=== PATIENT | female | born 1965 | race African-American/Black ===

== ENCOUNTER 2019-05-11 03:26 | Inpatient (IN) ==
[2019-05-11] MEDS ORDERED: ROCURONIUM 100 MG/10 ML VIAL IV ONE (03:44)
[2019-05-11] MEDS ORDERED: ETOMIDATE 20 MG/10 ML VIAL IV STA (03:44)
[2019-05-11] MEDS ORDERED: NOREPINEPHRINE 4 MG/4 ML VIAL IV ONE ×2 (03:51→08:41)
[2019-05-11] MEDS: NOREPINEPHRINE 8 MG in SODIUM CHLORIDE 0.9% 242 ML IV PRN ×3 (03:55→13:30)
[2019-05-11 04:15] LABS: ABG Base Excess -2.6 MMOL/L (-2.5-2.5); ABG HCO3 22.3 MMOL/L (20-26); ABG Oxygen Saturation 99.7 % (95-100); ABG PCO2 52.1 MM HG (35-48); ABG PH 7.291 (7.35-7.45); ABG TCO2 21.4 MMOL/L (23-27); Allen Test Positive; Pt O2 Delivery Device Ventilator
[2019-05-11] MEDS ORDERED: fentaNYL 100 MCG/2 ML VIAL IV STA (05:32)
[2019-05-11 05:48] LABS: Basophils # 0.1 10*3/uL (0.0-0.2); Basophils % 0.7 % (0.0-0.8); Eosinophils % 0.2 % (0.00-10.9); Hematocrit 59.1 VOL% (35.7-47.0); Immature Granulocytes % 2.2 %; Immature Granulocytes Absolute 0.27 #; Lymphocytes # 2.2 10*3/uL (1.4-4.0); Lymphocytes % 17.8 % (21.3-54.2); Mean Corpuscular HGB Conc 28.8 GM/DL (32-36); Mean Corpuscular Volume 103.7 FL (87-102); Mean Platelet Volume 9.3 FL (9.6-12.0); Monocytes % 10.6 % (1.7-12.7); Neutrophils % 68.5 % (38.7-73.9); Platelet Count 209 T/CUMM (130-400); Red Cell Distribution Width 14.6 % (9.3-17.3); White Blood Count 12.1 T/CUMM (4-12)
[2019-05-11 05:57] LABS: Albumin 3.5 G/DL (3.4-5.0); Bilirubin,Total 0.6 MG/DL (0.2-1.0); Calcium 9.3 MG/DL (8.5-10.1); Osmolality,Calculated 280.5 MOS/KG (273-304)
[2019-05-11 06:13] LABS: Platelet Estimate Adequate
[2019-05-11] MEDS ORDERED: SODIUM CHLORIDE 0.9% 2,000 ML IV STA (06:28)
[2019-05-11 06:32] LABS: Apearance,Urine Slightly Hazy (Clear); Bacteria,Urine Few /HPF (Few); Bilirubin,Urine Negative (Negative); Blood, Urine Negative (Negative); Glucose,Urine (UA) Negative (Negative); Hyaline Casts,Urine 7 /LPF (0-3); Ketones,Urine Negative (Negative); Mucus,Urine Occasional /LPF (Occasional); Nitrite,Urine Negative (Negative); Protein,Urine Negative; RBC,Urine 1 /HPF (0-4); Squamous Epithelial Cell,Urine Occasional /HPF (0-10); Urine Color Yellow (Yellow); Urine Specific Gravity 1.009 (1.001-1.035); Urine Urobilinogen < 2.0 EU/DL (0.2-1.0); WBC,Urine 2 /HPF (0-6)
[2019-05-11] MEDS ORDERED: MIDAZOLAM 100 MG in SODIUM CHLORIDE 0.9% 80 ML IV PRN (06:46)
[2019-05-11] MEDS ORDERED: ONDANSETRON 4 MG/2 ML VIAL IV PRN (06:57)
[2019-05-11] MEDS ORDERED: MORPHINE 4 MG/1 ML VIAL IV PRN (06:57)
[2019-05-11 08:36] LABS: Hepatitis B Core IgM Quant 0.08 Index; Hepatitis B Surface Ag Quant 0.36 Index; Hepatitis B Surface Ag Result Negative (Negative); Hepatitis C Virus Ab Quant < 0.02 Index; Hepatitis C Virus Ab Result Negative (Negative)
[2019-05-11] MEDS: LEVOFLOXACIN INJ 750 MG in PREMIX 1 EACH IV SCH (08:38)
[2019-05-11] MEDS: ENOXAPARIN 40 MG/0.4 ML SYRINGE SUBCUT SCH (08:40)
[2019-05-11 08:42] LABS: Barbiturates Screen,Urine Negative (Negative); Benzodiazepines Screen,Urine Positive (Negative); Cannabinoid Screen,Urine Negative (Negative); Opiate Screen,Urine Negative (Negative); Phencyclidine Screen,Urine Negative (Negative)
[2019-05-11] MEDS: FAMOTIDINE 20 MG/2 ML VIAL IV SCH ×2 (08:45→19:50)
[2019-05-11] MEDS: PIPERACILLIN/TAZOBACTAM 3,375 MG in SODIUM CHLORIDE 0.9% 100 ML IV SCH ×3 (08:45→22:12)
[2019-05-11] MEDS ORDERED: SODIUM CHLORIDE 0.9% 750 ML IV STA (11:01)
[2019-05-11 11:28] LABS: ABG Base Excess -2.2 MMOL/L (-2.5-2.5); ABG HCO3 22.6 MMOL/L (20-26); ABG Oxygen Saturation 98.7 % (95-100); ABG PCO2 40.4 MM HG (35-48); ABG PH 7.364 (7.35-7.45); ABG TCO2 19.6 MMOL/L (23-27)
[2019-05-11] MEDS ORDERED: ALBUTEROL/IPRATROPIUM 3 ML NEB RESP TX PRN (11:41)
[2019-05-11] MEDS ORDERED: PROPOFOL 1,000 MG/100 ML BOTTLE IV ONE (13:18)
[2019-05-11] MEDS: PROPOFOL 1,000 MG/100 ML BOTTLE IV SCH (13:20)
[2019-05-11] MEDS: DIAZEPAM 5 MG TABLET PER TUBE SCH ×3 (14:41→21:19)
[2019-05-11] MEDS: methylPREDNISolone SOD SUC 125 MG/2 ML VIAL IV SCH (14:46)
[2019-05-11] MEDS: SUCRALFATE 1 GM TABLET PO SCH (21:19)
[2019-05-12] MEDS: methylPREDNISolone SOD SUC 125 MG/2 ML VIAL IV SCH (01:49)
[2019-05-12 04:13] LABS: ABG Base Excess -3.3 MMOL/L (-2.5-2.5); ABG Oxygen Saturation 98.3 % (95-100); ABG PCO2 35.7 MM HG (35-48); ABG PH 7.387 (7.35-7.45); ABG PO2 135.9 MM HG (80-95); ABG TCO2 22.1 MMOL/L (23-27); Allen Test Positive; Pt O2 Delivery Device Ventilator
[2019-05-12] MEDS: THIAMINE 100 MG TABLET PO SCH (06:20)
[2019-05-12] MEDS: FOLIC ACID 1 MG TABLET PO SCH (06:20)
[2019-05-12] MEDS: ENOXAPARIN 40 MG/0.4 ML SYRINGE SUBCUT SCH (06:20)
[2019-05-12] MEDS: SUCRALFATE 1 GM TABLET PO SCH ×2 (06:20→21:12)
[2019-05-12] MEDS: PIPERACILLIN/TAZOBACTAM 3,375 MG in SODIUM CHLORIDE 0.9% 100 ML IV SCH ×3 (06:23→22:10)
[2019-05-12] MEDS: LEVOFLOXACIN INJ 750 MG in PREMIX 1 EACH IV SCH (06:23)
[2019-05-12 06:41] LABS: Calcium 9.3 MG/DL (8.5-10.1); Osmolality,Calculated 289.7 MOS/KG (273-304); Troponin I 0.029 NG/ML (0.00-0.045)
[2019-05-12 06:44] LABS: Basophils # 0.1 10*3/uL (0.0-0.2); Basophils % 0.5 % (0.0-0.8); Eosinophils % 0.1 % (0.00-10.9); Hematocrit 51.8 VOL% (35.7-47.0); Hemoglobin 15.5 GM/DL (12.0-16.0); Immature Granulocytes % 2.6 %; Immature Granulocytes Absolute 0.29 #; Lymphocytes # 1.1 10*3/uL (1.4-4.0); Mean Corpuscular HGB Conc 29.9 GM/DL (32-36); Mean Corpuscular Volume 100.4 FL (87-102); Mean Platelet Volume 9.5 FL (9.6-12.0); Monocytes % 3.5 % (1.7-12.7); Neutrophils % 83.3 % (38.7-73.9); Platelet Count 184 T/CUMM (130-400); Red Blood Count 5.16 MC/CUMM (3.8-5.5); Red Cell Distribution Width 14.5 % (9.3-17.3)
[2019-05-12 06:46] LABS: Platelet Estimate Adequate
[2019-05-12] MEDS ORDERED: CLOPIDOGREL 75 MG TABLET PO SCH (07:00)
[2019-05-12] MEDS ORDERED: MAGNESIUM SULF RIDER 4 GM in PREMIX 1 EACH IV ONE (07:57)
[2019-05-12] MEDS ORDERED: DEXTROSE 50% 25 GM/50 ML VIAL IV PRN (08:02)
[2019-05-12] MEDS ORDERED: GLUCAGON 1 MG VIAL IM PRN (08:02)
[2019-05-12] MEDS ORDERED: methylPREDNISolone SOD SUC 125 MG/2 ML VIAL IV SCH (08:03)
[2019-05-12] MEDS: FAMOTIDINE 20 MG/2 ML VIAL IV SCH ×2 (08:55→19:50)
[2019-05-12] MEDS: DIAZEPAM 5 MG TABLET PER TUBE SCH ×4 (08:56→21:12)
[2019-05-12] MEDS: POTASSIUM CHLORIDE 20 MEQ/15 ML UDCUP PER TUBE SCH ×2 (08:56→14:47)
[2019-05-12] MEDS: LACTATED RINGERS 1,000 ML IV SCH (08:57)
[2019-05-12 09:29] LABS: ABG Base Excess -1.4 MMOL/L (-2.5-2.5); ABG HCO3 23.2 MMOL/L (20-26); ABG Oxygen Saturation 97.8 % (95-100); ABG PCO2 43.7 MM HG (35-48); ABG PH 7.354 (7.35-7.45); ABG TCO2 20.8 MMOL/L (23-27); Pt O2 Delivery Device Ventilator
[2019-05-12] MEDS: PROPOFOL 1,000 MG/100 ML BOTTLE IV SCH (16:53)
[2019-05-12] MEDS ORDERED: IBUPROFEN 600 MG TABLET PO ONE (19:03)
[2019-05-12] MEDS ORDERED: methylPREDNISolone SOD SUC 40 MG/1 ML VIAL IV SCH (20:00)
[2019-05-13 04:56] LABS: ABG Base Excess -1.2 MMOL/L (-2.5-2.5); ABG HCO3 23.4 MMOL/L (20-26); ABG Oxygen Saturation 98.6 % (95-100); ABG PCO2 66.5 MM HG (35-48); ABG TCO2 25.2 MMOL/L (23-27); Allen Test Positive
[2019-05-13] MEDS: ENOXAPARIN 40 MG/0.4 ML SYRINGE SUBCUT SCH (06:03)
[2019-05-13] MEDS: SUCRALFATE 1 GM TABLET PO SCH ×2 (06:03→21:03)
[2019-05-13] MEDS: THIAMINE 100 MG TABLET PO SCH (06:03)
[2019-05-13] MEDS: FOLIC ACID 1 MG TABLET PO SCH (06:03)
[2019-05-13] MEDS: CLOPIDOGREL 75 MG TABLET PER TUBE SCH (06:04)
[2019-05-13] MEDS: LEVOFLOXACIN INJ 750 MG in PREMIX 1 EACH IV SCH (06:09)
[2019-05-13] MEDS: PIPERACILLIN/TAZOBACTAM 3,375 MG in SODIUM CHLORIDE 0.9% 100 ML IV SCH ×3 (06:09→23:39)
[2019-05-13 06:22] LABS: Basophils # 0.1 10*3/uL (0.0-0.2); Basophils % 0.4 % (0.0-0.8); Hemoglobin 14.2 GM/DL (12.0-16.0); Immature Granulocytes % 1.2 %; Immature Granulocytes Absolute 0.16 #; Lymphocytes # 1.7 10*3/uL (1.4-4.0); Lymphocytes % 12.7 % (21.3-54.2); Mean Corpuscular HGB Conc 29.6 GM/DL (32-36); Mean Corpuscular Volume 101.7 FL (87-102); Mean Platelet Volume 9.1 FL (9.6-12.0); Monocytes % 6.6 % (1.7-12.7); Neutrophils % 79.1 % (38.7-73.9); Platelet Count 177 T/CUMM (130-400); Red Blood Count 4.72 MC/CUMM (3.8-5.5); Red Cell Distribution Width 14.4 % (9.3-17.3); White Blood Count 13.7 T/CUMM (4-12)
[2019-05-13 06:23] LABS: Calcium 8.5 MG/DL (8.5-10.1)
[2019-05-13 06:32] LABS: Band Neutrophils 2 % (0-10); Lymphocytes 12 % (20-55); Platelet Estimate Normal; Segmented Neutrophils 79 % (50-85); Total Cells Counted 100
[2019-05-13] MEDS: LACTATED RINGERS 1,000 ML IV SCH (07:27)
[2019-05-13] MEDS: LEVOFLOXACIN 500 MG TABLET PO SCH (08:25)
[2019-05-13] MEDS ORDERED: predniSONE 20 MG TABLET PO SCH (09:00)
[2019-05-13] MEDS: FAMOTIDINE 20 MG/2 ML VIAL IV SCH (10:39)
[2019-05-13 12:30] LABS: ABG Base Excess -3.5 MMOL/L (-2.5-2.5); ABG HCO3 21.5 MMOL/L (20-26); ABG Oxygen Saturation 94.9 % (95-100); ABG PO2 88.1 MM HG (80-95); ABG TCO2 25.1 MMOL/L (23-27)
[2019-05-13 12:31] LABS: ABG PCO2 76.3 MM HG (35-48); ABG PH 7.177 (7.35-7.45)
[2019-05-13] MEDS ORDERED: IBUPROFEN 200 MG TABLET PO PRN (13:23)
[2019-05-13 15:47] LABS: ABG Base Excess 0.3 MMOL/L (-2.5-2.5); ABG HCO3 24.6 MMOL/L (20-26); ABG Oxygen Saturation 94.9 % (95-100); ABG PCO2 51.1 MM HG (35-48); ABG PH 7.335 (7.35-7.45); ABG PO2 72.3 MM HG (80-95); ABG TCO2 23.7 MMOL/L (23-27); Allen Test Positive; Pt O2 Delivery Device BIPAP
[2019-05-13] MEDS: CARVEDILOL 25 MG TABLET PO SCH (16:13)
[2019-05-13] MEDS: methylPREDNISolone SOD SUC 40 MG/1 ML VIAL IV SCH ×2 (16:13→23:37)
[2019-05-13] MEDS: FAMOTIDINE 20 MG TABLET PO SCH (21:03)
[2019-05-14] MEDS: IBUPROFEN 400 MG TABLET PO PRN ×2 (03:07→18:35)
[2019-05-14 05:44] LABS: Basophils % 0.3 % (0.0-0.8); Immature Granulocytes % 1.3 %; Immature Granulocytes Absolute 0.13 #; Mean Corpuscular HGB Conc 29.7 GM/DL (32-36); Mean Corpuscular Volume 101.3 FL (87-102); Mean Platelet Volume 9.4 FL (9.6-12.0); Monocytes % 4.8 % (1.7-12.7); Neutrophils % 83.6 % (38.7-73.9); Platelet Count 177 T/CUMM (130-400); Red Blood Count 4.59 MC/CUMM (3.8-5.5); Red Cell Distribution Width 14.2 % (9.3-17.3); White Blood Count 10.1 T/CUMM (4-12)
[2019-05-14 06:13] LABS: Hematocrit 46.1 VOL% (35.7-47.0); Hemoglobin 13.8 GM/DL (12.0-16.0)
[2019-05-14 06:14] LABS: Hypochromasia 1+; Platelet Estimate Adequate
[2019-05-14 06:30] LABS: Calcium 9.4 MG/DL (8.5-10.1); Osmolality,Calculated 290.6 MOS/KG (273-304)
[2019-05-14] MEDS: SUCRALFATE 1 GM TABLET PO SCH ×2 (07:08→20:12)
[2019-05-14] MEDS: FOLIC ACID 1 MG TABLET PO SCH (07:08)
[2019-05-14] MEDS: CLOPIDOGREL 75 MG TABLET PER TUBE SCH (07:09)
[2019-05-14] MEDS: ENOXAPARIN 40 MG/0.4 ML SYRINGE SUBCUT SCH (07:09)
[2019-05-14] MEDS: PIPERACILLIN/TAZOBACTAM 3,375 MG in SODIUM CHLORIDE 0.9% 100 ML IV SCH (07:10)
[2019-05-14] MEDS: THIAMINE 100 MG TABLET PO SCH (07:14)
[2019-05-14] MEDS: LEVOFLOXACIN 500 MG TABLET PO SCH (08:42)
[2019-05-14] MEDS: MULTIVITAMIN (CENTRUM) TABLET PO SCH (08:42)
[2019-05-14] MEDS: CARVEDILOL 25 MG TABLET PO SCH ×2 (08:43→17:16)
[2019-05-14] MEDS: methylPREDNISolone SOD SUC 40 MG/1 ML VIAL IV SCH ×3 (08:44→23:52)
[2019-05-14] MEDS: CYANOCOBALAMIN 500 MCG TABLET PO SCH (08:49)
[2019-05-14] MEDS: ALBUTEROL/IPRATROPIUM 3 ML NEB RESP TX SCH ×2 (13:20→19:25)
[2019-05-14] MEDS: DIAZEPAM 5 MG TABLET PER TUBE PRN (20:12)
[2019-05-14] MEDS: FAMOTIDINE 20 MG TABLET PO SCH (20:12)
[2019-05-14] MEDS: QUEtiapine 25 MG TABLET PO PRN (23:50)
[2019-05-15] MEDS: ALBUTEROL/IPRATROPIUM 3 ML NEB RESP TX SCH ×4 (01:01→19:05)
[2019-05-15] MEDS: ENOXAPARIN 40 MG/0.4 ML SYRINGE SUBCUT SCH (06:41)
[2019-05-15] MEDS: SUCRALFATE 1 GM TABLET PO SCH (06:42)
[2019-05-15] MEDS: FOLIC ACID 1 MG TABLET PO SCH (06:42)
[2019-05-15] MEDS: CLOPIDOGREL 75 MG TABLET PER TUBE SCH (06:42)
[2019-05-15] MEDS: THIAMINE 100 MG TABLET PO SCH (06:42)
[2019-05-15 07:51] LABS: Basophils % 0.2 % (0.0-0.8); Eosinophils % 0.1 % (0.00-10.9); Hematocrit 47.4 VOL% (35.7-47.0); Immature Granulocytes % 7.3 %; Immature Granulocytes Absolute 0.78 #; Lymphocytes # 1.2 10*3/uL (1.4-4.0); Lymphocytes % 11.6 % (21.3-54.2); Mean Corpuscular HGB Conc 29.5 GM/DL (32-36); Mean Corpuscular Volume 103.5 FL (87-102); Mean Platelet Volume 9.5 FL (9.6-12.0); Monocytes % 5.8 % (1.7-12.7); NRBC # 0.04 10*3/uL; Platelet Count 180 T/CUMM (130-400); Red Blood Count 4.58 MC/CUMM (3.8-5.5); Red Cell Distribution Width 14.4 % (9.3-17.3); White Blood Count 10.7 T/CUMM (4-12)
[2019-05-15 07:55] LABS: Osmolality,Calculated 289.6 MOS/KG (273-304)
[2019-05-15 08:07] LABS: Band Neutrophils 3 % (0-10); Lymphocytes 13 % (20-55); Platelet Estimate Adequate; Segmented Neutrophils 81 % (50-85); Total Cells Counted 100
[2019-05-15 08:08] LABS: Hypochromasia 1+
[2019-05-15] MEDS: CYANOCOBALAMIN 500 MCG TABLET PO SCH (08:52)
[2019-05-15] MEDS: LEVOFLOXACIN 500 MG TABLET PO SCH (08:52)
[2019-05-15] MEDS: methylPREDNISolone SOD SUC 40 MG/1 ML VIAL IV SCH ×3 (08:52→23:57)
[2019-05-15] MEDS: MULTIVITAMIN (CENTRUM) TABLET PO SCH (08:53)
[2019-05-15] MEDS: CARVEDILOL 25 MG TABLET PO SCH ×2 (08:53→17:56)
[2019-05-15] MEDS: ALBUTEROL 0.63 MG/3 ML NEB RESP TX SCH ×2 (08:57→11:05)
[2019-05-15 09:00] LABS: ABG Base Excess -2.7 MMOL/L (-2.5-2.5); ABG HCO3 21.8 MMOL/L (20-26); ABG Oxygen Saturation 82.6 % (95-100); ABG PO2 53.6 MM HG (80-95)
[2019-05-15 09:04] LABS: ABG PCO2 91.8 MM HG (35-48); ABG PH 7.136 (7.35-7.45)
[2019-05-15] MEDS: DIAZEPAM 5 MG TABLET PER TUBE PRN (10:55)
[2019-05-15] MEDS ORDERED: ALBUTEROL 0.63 MG/3 ML NEB RESP TX PRN (11:14)
[2019-05-15] MEDS ORDERED: ETOMIDATE 20 MG/10 ML VIAL IV ONE ×2 (11:54→12:12)
[2019-05-15] MEDS ORDERED: VECURONIUM 10 MG VIAL IV ONE (11:55)
[2019-05-15] MEDS ORDERED: SUCCINYLCHOLINE 200 MG/10 ML VIAL ONE (11:55)
[2019-05-15] MEDS ORDERED: LACTATED RINGERS 500 ML IV ONE (12:00)
[2019-05-15] MEDS ORDERED: ROCURONIUM 100 MG/10 ML VIAL IV ONE ×2 (12:04→12:10)
[2019-05-15] MEDS ORDERED: PROPOFOL 1,000 MG/100 ML BOTTLE IV ONE (12:13)
[2019-05-15] MEDS: PROPOFOL 1,000 MG/100 ML BOTTLE IV SCH ×2 (12:15→20:48)
[2019-05-15 13:44] LABS: ABG Base Excess 1.2 MMOL/L (-2.5-2.5); ABG HCO3 25.5 MMOL/L (20-26); ABG Oxygen Saturation 98.7 % (95-100); ABG PCO2 52.7 MM HG (35-48); ABG PH 7.339 (7.35-7.45); ABG TCO2 24.4 MMOL/L (23-27); Pt O2 Delivery Device Ventilator
[2019-05-15] MEDS: FAMOTIDINE 20 MG/2 ML VIAL IV SCH ×2 (14:42→23:56)
[2019-05-15] MEDS: NIFEdipine 10 MG CAPSULE PO PRN ×2 (14:43→20:07)
[2019-05-15 21:30] LABS: Apearance,Urine Slightly Hazy (Clear); Bacteria,Urine Occasional /HPF (Few); Bilirubin,Urine Negative (Negative); Blood, Urine Negative (Negative); Glucose,Urine (UA) Negative (Negative); Granular Casts,Urine 1 /LPF (0-1); Hyaline Casts,Urine 33 /LPF (0-3); Ketones,Urine Negative (Negative); Mucus,Urine Occasional /LPF (Occasional); Nitrite,Urine Negative (Negative); Protein,Urine 30 MG/DL; RBC,Urine 2 /HPF (0-4); Squamous Epithelial Cell,Urine Occasional /HPF (0-10); Urine Color Yellow (Yellow); Urine Specific Gravity 1.014 (1.001-1.035); Urine Urobilinogen < 2.0 EU/DL (0.2-1.0); WBC,Urine 5 /HPF (0-6)
[2019-05-15] MEDS: MIDAZOLAM 100 MG in SODIUM CHLORIDE 0.9% 80 ML IV PRN (21:33)
[2019-05-15] MEDS: IBUPROFEN 400 MG TABLET PO PRN (22:47)
[2019-05-15] MEDS: QUEtiapine 25 MG TABLET PO PRN (22:52)
[2019-05-16] MEDS: ALBUTEROL/IPRATROPIUM 3 ML NEB RESP TX SCH ×4 (01:38→19:27)
[2019-05-16] MEDS: DIAZEPAM 5 MG TABLET PER TUBE PRN (03:44)
[2019-05-16] MEDS: NIFEdipine 10 MG CAPSULE PO PRN ×2 (03:45→09:53)
[2019-05-16 04:12] LABS: ABG Base Excess 5.8 MMOL/L (-2.5-2.5); ABG HCO3 29.6 MMOL/L (20-26); ABG Oxygen Saturation 96.3 % (95-100); ABG PCO2 53.4 MM HG (35-48); ABG PH 7.392 (7.35-7.45); ABG PO2 81.2 MM HG (80-95); ABG TCO2 27.9 MMOL/L (23-27); Allen Test Positive; Pt O2 Delivery Device Ventilator
[2019-05-16] MEDS ORDERED: LORazepam 2 MG/1 ML VIAL IV PRN (04:26)
[2019-05-16] MEDS: fentaNYL INJ 1,250 MCG in SODIUM CHLORIDE 0.9% 225 ML IV PRN ×3 (05:08→21:24)
[2019-05-16] MEDS ORDERED: DEXMEDETOMIDINE 200 MCG in SODIUM CHLORIDE 0.9% 48 ML IV PRN (06:23)
[2019-05-16 06:47] LABS: Basophils # 0.1 10*3/uL (0.0-0.2); Basophils % 0.9 % (0.0-0.8); Hematocrit 44.4 VOL% (35.7-47.0); Hemoglobin 13.5 GM/DL (12.0-16.0); Immature Granulocytes % 4.4 %; Immature Granulocytes Absolute 0.57 #; Lymphocytes % 15.2 % (21.3-54.2); Mean Corpuscular HGB Conc 30.4 GM/DL (32-36); Mean Corpuscular Volume 98.4 FL (87-102); Mean Platelet Volume 9.4 FL (9.6-12.0); Monocytes % 5.3 % (1.7-12.7); NRBC # 0.06 10*3/uL; Neutrophils % 74.2 % (38.7-73.9); Platelet Count 184 T/CUMM (130-400); Red Blood Count 4.51 MC/CUMM (3.8-5.5); White Blood Count 12.9 T/CUMM (4-12)
[2019-05-16 07:12] LABS: Albumin 2.8 G/DL (3.4-5.0); Bilirubin,Total 0.5 MG/DL (0.2-1.0); Calcium 9.8 MG/DL (8.5-10.1); Osmolality,Calculated 287.8 MOS/KG (273-304); Total Protein 6.2 G/DL (6.4-8.3)
[2019-05-16 07:40] LABS: Hypochromasia Slight; Lymphocytes 18 % (20-55); Metamyelocytes 1 %; Segmented Neutrophils 75 % (50-85); Target Cells Slight; Total Cells Counted 100
[2019-05-16 07:41] LABS: Macrocytosis Slight; Platelet Estimate Adequate
[2019-05-16] MEDS: CARVEDILOL 25 MG TABLET PO SCH (07:55)
[2019-05-16] MEDS: MULTIVITAMIN (CENTRUM) TABLET PO SCH (08:42)
[2019-05-16] MEDS: FOLIC ACID 1 MG TABLET PO SCH (08:42)
[2019-05-16] MEDS: CLOPIDOGREL 75 MG TABLET PO SCH (08:42)
[2019-05-16] MEDS: CYANOCOBALAMIN 500 MCG TABLET PO SCH (08:43)
[2019-05-16] MEDS: THIAMINE 100 MG TABLET PO SCH (08:43)
[2019-05-16] MEDS: ENOXAPARIN 40 MG/0.4 ML SYRINGE SUBCUT SCH (08:43)
[2019-05-16] MEDS: LEVOFLOXACIN INJ 500 MG in PREMIX 1 EACH IV SCH (08:44)
[2019-05-16] MEDS: methylPREDNISolone SOD SUC 40 MG/1 ML VIAL IV SCH ×3 (08:44→23:58)
[2019-05-16] MEDS ORDERED: GLUCAGON 1 MG VIAL IM PRN (08:58)
[2019-05-16] MEDS ORDERED: DEXTROSE 50% 25 GM/50 ML VIAL IV PRN (08:58)
[2019-05-16] MEDS: LISINOPRIL 10 MG TABLET PER TUBE SCH ×2 (12:33→20:11)
[2019-05-16] MEDS: FUROSEMIDE 40 MG TABLET PER TUBE SCH (12:33)
[2019-05-16] MEDS: FAMOTIDINE 20 MG/2 ML VIAL IV SCH ×2 (12:34→23:56)
[2019-05-16] MEDS: MIDAZOLAM 100 MG in SODIUM CHLORIDE 0.9% 80 ML IV PRN (16:00)
[2019-05-16] MEDS ORDERED: fentaNYL INJ 2,500 MCG in SODIUM CHLORIDE 0.9% 450 ML IV PRN (18:22)
[2019-05-16] MEDS: IBUPROFEN 400 MG TABLET PO PRN (20:10)
[2019-05-16] MEDS: CARVEDILOL 25 MG TABLET PER TUBE SCH (20:11)
[2019-05-16] MEDS: QUEtiapine 25 MG TABLET PO PRN (20:11)
[2019-05-17] MEDS: ALBUTEROL/IPRATROPIUM 3 ML NEB RESP TX SCH ×4 (00:56→20:00)
[2019-05-17 03:56] LABS: ABG Base Excess 12.2 MMOL/L (-2.5-2.5); ABG Oxygen Saturation 96.1 % (95-100); ABG PCO2 49.1 MM HG (35-48); ABG PH 7.495 (7.35-7.45); ABG PO2 79.1 MM HG (80-95); Allen Test Positive; Pt O2 Delivery Device Ventilator
[2019-05-17 03:58] LABS: Basophils # 0.1 10*3/uL (0.0-0.2); Basophils % 0.5 % (0.0-0.8); Hematocrit 44.7 VOL% (35.7-47.0); Hemoglobin 14.1 GM/DL (12.0-16.0); Immature Granulocytes % 3.7 %; Immature Granulocytes Absolute 0.54 #; Lymphocytes # 1.8 10*3/uL (1.4-4.0); Lymphocytes % 12.2 % (21.3-54.2); Mean Corpuscular HGB Conc 31.5 GM/DL (32-36); Mean Corpuscular Volume 94.9 FL (87-102); Mean Platelet Volume 9.5 FL (9.6-12.0); Monocytes % 3.6 % (1.7-12.7); NRBC # 0.02 10*3/uL; Platelet Count 225 T/CUMM (130-400); Red Blood Count 4.71 MC/CUMM (3.8-5.5); Red Cell Distribution Width 13.7 % (9.3-17.3); White Blood Count 14.7 T/CUMM (4-12)
[2019-05-17 04:27] LABS: Albumin 2.7 G/DL (3.4-5.0); Bilirubin,Total 0.7 MG/DL (0.2-1.0); Calcium 9.3 MG/DL (8.5-10.1); Osmolality,Calculated 290.8 MOS/KG (273-304); Total Protein 6.1 G/DL (6.4-8.3)
[2019-05-17 04:47] LABS: Lymphocytes 9 % (20-55); Segmented Neutrophils 87 % (50-85); Total Cells Counted 100
[2019-05-17 04:48] LABS: Anisocytosis 1+; Platelet Estimate Adequate
[2019-05-17] MEDS: fentaNYL INJ 1,250 MCG in SODIUM CHLORIDE 0.9% 225 ML IV PRN ×4 (05:06→21:05)
[2019-05-17] MEDS: LEVOFLOXACIN INJ 500 MG in PREMIX 1 EACH IV SCH (05:59)
[2019-05-17] MEDS: FOLIC ACID 1 MG TABLET PO SCH (09:00)
[2019-05-17] MEDS: LISINOPRIL 10 MG TABLET PER TUBE SCH ×2 (09:00→20:21)
[2019-05-17] MEDS: MULTIVITAMIN (CENTRUM) TABLET PO SCH (09:00)
[2019-05-17] MEDS: CARVEDILOL 25 MG TABLET PER TUBE SCH ×2 (09:01→20:22)
[2019-05-17] MEDS: CLOPIDOGREL 75 MG TABLET PO SCH (09:01)
[2019-05-17] MEDS: THIAMINE 100 MG TABLET PO SCH (09:01)
[2019-05-17] MEDS: FUROSEMIDE 40 MG TABLET PER TUBE SCH (09:01)
[2019-05-17] MEDS: CYANOCOBALAMIN 500 MCG TABLET PO SCH (09:04)
[2019-05-17] MEDS: methylPREDNISolone SOD SUC 40 MG/1 ML VIAL IV SCH ×2 (09:14→16:05)
[2019-05-17] MEDS: ENOXAPARIN 40 MG/0.4 ML SYRINGE SUBCUT SCH (09:14)
[2019-05-17] MEDS: POTASSIUM CHLORIDE 20 MEQ/15 ML UDCUP PER TUBE SCH ×4 (09:42→20:22)
[2019-05-17] MEDS: MIDAZOLAM 100 MG in SODIUM CHLORIDE 0.9% 80 ML IV PRN (10:54)
[2019-05-17] MEDS: FAMOTIDINE 20 MG/2 ML VIAL IV SCH (12:14)
[2019-05-17] MEDS: IBUPROFEN 400 MG TABLET PO PRN (20:21)
[2019-05-17] MEDS: QUEtiapine 25 MG TABLET PO PRN (20:21)
[2019-05-18] MEDS: FAMOTIDINE 20 MG/2 ML VIAL IV SCH ×2 (00:31→12:58)
[2019-05-18] MEDS: methylPREDNISolone SOD SUC 40 MG/1 ML VIAL IV SCH ×3 (00:32→15:40)
[2019-05-18] MEDS: ALBUTEROL/IPRATROPIUM 3 ML NEB RESP TX SCH ×4 (00:41→19:27)
[2019-05-18 03:11] LABS: Allen Test Positive; Pt O2 Delivery Device Ventilator
[2019-05-18 03:14] LABS: ABG Base Excess 10.8 MMOL/L (-2.5-2.5); ABG HCO3 34.5 MMOL/L (20-26); ABG PCO2 67.8 MM HG (35-48); ABG PH 7.375 (7.35-7.45); ABG PO2 72.8 MM HG (80-95); ABG TCO2 34.2 MMOL/L (23-27)
[2019-05-18 05:05] LABS: Basophils # 0.1 10*3/uL (0.0-0.2); Basophils % 0.4 % (0.0-0.8); Hematocrit 45.8 VOL% (35.7-47.0); Hemoglobin 14.1 GM/DL (12.0-16.0); Immature Granulocytes % 2.5 %; Immature Granulocytes Absolute 0.45 #; Lymphocytes # 1.6 10*3/uL (1.4-4.0); Lymphocytes % 8.5 % (21.3-54.2); Mean Corpuscular HGB Conc 30.8 GM/DL (32-36); Mean Corpuscular Volume 98.5 FL (87-102); Mean Platelet Volume 9.5 FL (9.6-12.0); Monocytes % 2.9 % (1.7-12.7); Neutrophils % 85.7 % (38.7-73.9); Platelet Count 256 T/CUMM (130-400); Red Blood Count 4.65 MC/CUMM (3.8-5.5); Red Cell Distribution Width 13.8 % (9.3-17.3); White Blood Count 18.1 T/CUMM (4-12)
[2019-05-18 05:18] LABS: Alanine Aminotransferase 47 U/L (13-56); Albumin 2.8 G/DL (3.4-5.0); Alkaline Phosphatase 51 U/L (45-117); Aspartate Amino Transferase 16 U/L (0-37); Bilirubin,Total < 0.39 MG/DL (0.2-1.0); Blood Urea Nitrogen 25 MG/DL (7-18); Calcium 9.5 MG/DL (8.5-10.1); Glucose 143 MG/DL (74-106); Osmolality,Calculated 293.7 MOS/KG (273-304); Total Protein 6.2 G/DL (6.4-8.3)
[2019-05-18 05:33] LABS: Band Neutrophils 1 % (0-10); Hypochromasia 1+; Lymphocytes 8 % (20-55); Macrocytosis Slight; Platelet Estimate Adequate; Segmented Neutrophils 91 % (50-85); Total Cells Counted 100
[2019-05-18] MEDS: LEVOFLOXACIN INJ 500 MG in PREMIX 1 EACH IV SCH (06:04)
[2019-05-18] MEDS: MIDAZOLAM 100 MG in SODIUM CHLORIDE 0.9% 80 ML IV PRN (06:10)
[2019-05-18] MEDS: CYANOCOBALAMIN 500 MCG TABLET PO SCH (08:38)
[2019-05-18] MEDS: MULTIVITAMIN (CENTRUM) TABLET PO SCH (08:38)
[2019-05-18] MEDS: FOLIC ACID 1 MG TABLET PO SCH (08:38)
[2019-05-18] MEDS: THIAMINE 100 MG TABLET PO SCH (08:38)
[2019-05-18] MEDS: LISINOPRIL 10 MG TABLET PER TUBE SCH ×2 (08:38→21:46)
[2019-05-18] MEDS: CARVEDILOL 25 MG TABLET PER TUBE SCH ×2 (08:38→21:46)
[2019-05-18] MEDS: FUROSEMIDE 40 MG TABLET PER TUBE SCH (08:39)
[2019-05-18] MEDS: CLOPIDOGREL 75 MG TABLET PO SCH (08:39)
[2019-05-18 10:32] LABS: ABG Base Excess 13.8 MMOL/L (-2.5-2.5); ABG HCO3 37.6 MMOL/L (20-26); ABG Oxygen Saturation 94.4 % (95-100); ABG PCO2 63.1 MM HG (35-48); ABG PH 7.434 (7.35-7.45); ABG PO2 71.7 MM HG (80-95); ABG TCO2 35.3 MMOL/L (23-27); Allen Test Positive; Pt O2 Delivery Device Ventilator
[2019-05-18] MEDS: ENOXAPARIN 40 MG/0.4 ML SYRINGE SUBCUT SCH (10:43)
[2019-05-18] MEDS: hydrALAZINE 20 MG/1 ML VIAL IV PRN (12:59)
[2019-05-19] MEDS: methylPREDNISolone SOD SUC 40 MG/1 ML VIAL IV SCH ×3 (01:02→16:32)
[2019-05-19] MEDS: FAMOTIDINE 20 MG/2 ML VIAL IV SCH ×2 (01:02→14:04)
[2019-05-19] MEDS: ALBUTEROL/IPRATROPIUM 3 ML NEB RESP TX SCH ×4 (01:06→19:05)
[2019-05-19 04:22] LABS: Basophils # 0.1 10*3/uL (0.0-0.2); Basophils % 0.4 % (0.0-0.8); Hematocrit 46.6 VOL% (35.7-47.0); Hemoglobin 14.8 GM/DL (12.0-16.0); Immature Granulocytes % 2.6 %; Immature Granulocytes Absolute 0.55 #; Lymphocytes # 1.6 10*3/uL (1.4-4.0); Lymphocytes % 7.5 % (21.3-54.2); Mean Corpuscular HGB Conc 31.8 GM/DL (32-36); Mean Corpuscular Volume 95.1 FL (87-102); Mean Platelet Volume 9.2 FL (9.6-12.0); Monocytes % 5.2 % (1.7-12.7); Neutrophils % 84.3 % (38.7-73.9); Platelet Count 292 T/CUMM (130-400); Red Cell Distribution Width 13.9 % (9.3-17.3); White Blood Count 21.5 T/CUMM (4-12)
[2019-05-19 04:51] LABS: Bilirubin,Total 0.7 MG/DL (0.2-1.0); Osmolality,Calculated 279.8 MOS/KG (273-304); Total Protein 6.8 G/DL (6.4-8.3)
[2019-05-19 05:18] LABS: Band Neutrophils 2 % (0-10); Lymphocytes 6 % (20-55); Nucleated Red Blood Cells 21 (0-5); Platelet Estimate Normal; Segmented Neutrophils 90 % (50-85); Total Cells Counted 100
[2019-05-19 05:19] LABS: Polychromasia Few
[2019-05-19] MEDS: LEVOFLOXACIN INJ 500 MG in PREMIX 1 EACH IV SCH (06:16)
[2019-05-19] MEDS: hydrALAZINE 20 MG/1 ML VIAL IV PRN (06:40)
[2019-05-19] MEDS ORDERED: LORazepam 1 MG TABLET PO PRN (07:59)
[2019-05-19] MEDS: ENOXAPARIN 40 MG/0.4 ML SYRINGE SUBCUT SCH (08:52)
[2019-05-19] MEDS: LISINOPRIL 10 MG TABLET PER TUBE SCH (08:52)
[2019-05-19] MEDS: FUROSEMIDE 40 MG TABLET PER TUBE SCH (08:53)
[2019-05-19] MEDS: CYANOCOBALAMIN 500 MCG TABLET PO SCH (08:53)
[2019-05-19] MEDS: CARVEDILOL 25 MG TABLET PER TUBE SCH ×2 (08:53→20:55)
[2019-05-19] MEDS: CLOPIDOGREL 75 MG TABLET PO SCH (08:53)
[2019-05-19] MEDS: THIAMINE 100 MG TABLET PO SCH (08:53)
[2019-05-19] MEDS: MULTIVITAMIN (CENTRUM) TABLET PO SCH (08:53)
[2019-05-19] MEDS: FOLIC ACID 1 MG TABLET PO SCH (08:54)
[2019-05-19] MEDS: QUEtiapine 25 MG TABLET PO PRN (20:55)
[2019-05-19] MEDS: LISINOPRIL 20 MG TABLET PER TUBE SCH (20:55)
[2019-05-20] MEDS: ALBUTEROL/IPRATROPIUM 3 ML NEB RESP TX SCH ×4 (01:20→20:14)
[2019-05-20] MEDS: FAMOTIDINE 20 MG/2 ML VIAL IV SCH ×2 (02:15→12:16)
[2019-05-20] MEDS: methylPREDNISolone SOD SUC 40 MG/1 ML VIAL IV SCH (02:15)
[2019-05-20 03:57] LABS: Basophils # 0.1 10*3/uL (0.0-0.2); Basophils % 0.8 % (0.0-0.8); Hematocrit 50.6 VOL% (35.7-47.0); Hemoglobin 16.3 GM/DL (12.0-16.0); Immature Granulocytes % 2.5 %; Immature Granulocytes Absolute 0.45 #; Lymphocytes # 1.6 10*3/uL (1.4-4.0); Lymphocytes % 8.8 % (21.3-54.2); Mean Corpuscular HGB Conc 32.2 GM/DL (32-36); Mean Corpuscular Volume 94.9 FL (87-102); Mean Platelet Volume 9.8 FL (9.6-12.0); Monocytes % 5.2 % (1.7-12.7); Neutrophils % 82.7 % (38.7-73.9); Platelet Count 269 T/CUMM (130-400); Red Blood Count 5.33 MC/CUMM (3.8-5.5); White Blood Count 18.1 T/CUMM (4-12)
[2019-05-20 04:12] LABS: Albumin 3.2 G/DL (3.4-5.0); Bilirubin,Total 0.8 MG/DL (0.2-1.0); Calcium 10.2 MG/DL (8.5-10.1); Osmolality,Calculated 280.7 MOS/KG (273-304); Total Protein 6.7 G/DL (6.4-8.3)
[2019-05-20 04:54] LABS: Hypochromasia 1+; Platelet Estimate Adequate
[2019-05-20] MEDS: FOLIC ACID 1 MG TABLET PO SCH (09:42)
[2019-05-20] MEDS: CLOPIDOGREL 75 MG TABLET PO SCH (09:42)
[2019-05-20] MEDS: predniSONE 20 MG TABLET PO SCH (09:42)
[2019-05-20] MEDS: MULTIVITAMIN (CENTRUM) TABLET PO SCH (09:42)
[2019-05-20] MEDS: CYANOCOBALAMIN 500 MCG TABLET PO SCH (09:44)
[2019-05-20] MEDS: LISINOPRIL 20 MG TABLET PER TUBE SCH ×2 (09:44→22:33)
[2019-05-20] MEDS: FUROSEMIDE 40 MG TABLET PER TUBE SCH (09:44)
[2019-05-20] MEDS: THIAMINE 100 MG TABLET PO SCH (09:44)
[2019-05-20] MEDS: CARVEDILOL 25 MG TABLET PER TUBE SCH ×2 (09:44→22:34)
[2019-05-20] MEDS: ENOXAPARIN 40 MG/0.4 ML SYRINGE SUBCUT SCH (09:45)
[2019-05-20] MEDS: IBUPROFEN 400 MG TABLET PO PRN (22:34)
[2019-05-20] MEDS: QUEtiapine 25 MG TABLET PO PRN (22:38)
[2019-05-21] MEDS: ALBUTEROL/IPRATROPIUM 3 ML NEB RESP TX SCH ×4 (00:28→19:04)
[2019-05-21] MEDS: CLOPIDOGREL 75 MG TABLET PO SCH (09:14)
[2019-05-21] MEDS: FUROSEMIDE 40 MG TABLET PO SCH (09:14)
[2019-05-21] MEDS: predniSONE 20 MG TABLET PO SCH (09:14)
[2019-05-21] MEDS: ENOXAPARIN 40 MG/0.4 ML SYRINGE SUBCUT SCH (09:14)
[2019-05-21] MEDS: THIAMINE 100 MG TABLET PO SCH (09:14)
[2019-05-21] MEDS: LISINOPRIL 20 MG TABLET PO SCH ×2 (09:14→21:29)
[2019-05-21] MEDS: CYANOCOBALAMIN 500 MCG TABLET PO SCH (09:14)
[2019-05-21] MEDS: PANTOPRAZOLE 20 MG TABLET PO SCH (09:15)
[2019-05-21] MEDS: FOLIC ACID 1 MG TABLET PO SCH (09:15)
[2019-05-21] MEDS: CARVEDILOL 25 MG TABLET PO SCH ×2 (09:15→21:29)
[2019-05-21] MEDS: MULTIVITAMIN (CENTRUM) TABLET PO SCH (09:15)
[2019-05-21] MEDS: IBUPROFEN 400 MG TABLET PO PRN (18:59)
[2019-05-21] MEDS: QUEtiapine 25 MG TABLET PO PRN (21:30)
[2019-05-22] MEDS: ALBUTEROL/IPRATROPIUM 3 ML NEB RESP TX SCH ×2 (00:34→07:31)
[2019-05-22] MEDS ORDERED: predniSONE 10 MG TABLET ONE (09:41)
[2019-05-22] MEDS: MULTIVITAMIN (CENTRUM) TABLET PO SCH (09:43)
[2019-05-22] MEDS: THIAMINE 100 MG TABLET PO SCH (09:44)
[2019-05-22] MEDS: CYANOCOBALAMIN 500 MCG TABLET PO SCH (09:44)
[2019-05-22] MEDS: LISINOPRIL 20 MG TABLET PO SCH (09:44)
[2019-05-22] MEDS: FOLIC ACID 1 MG TABLET PO SCH (09:44)
[2019-05-22] MEDS: predniSONE 20 MG TABLET PO SCH (09:44)
[2019-05-22] MEDS: PANTOPRAZOLE 20 MG TABLET PO SCH (09:45)
[2019-05-22] MEDS: FUROSEMIDE 40 MG TABLET PO SCH (09:45)
[2019-05-22] MEDS: ENOXAPARIN 40 MG/0.4 ML SYRINGE SUBCUT SCH (09:45)
[2019-05-22] MEDS: CARVEDILOL 25 MG TABLET PO SCH (09:45)
[2019-05-22] MEDS: CLOPIDOGREL 75 MG TABLET PO SCH (09:45)
[2019-05-22 10:56] VITALS: BP 112/66
== END 2019-05-22 12:11 | disposition home or self-care (01) | DRG 917 ==
LOC: SUATTDRO → N.ED 03:26 → N.EDINP 06:53 → SUATTDRO 06:53 → N.EDINP 11:31 → N.ICU 11:32 → N.5E 05-13 10:18 → N.CC 05-15 09:48 → N.5E 05-20 17:51
PROVIDERS: ADMIT Internal Medicine